=== PATIENT | male | born 1945 | race Caucasian/White ===

== ENCOUNTER 2024-02-10 08:17 | Emergency (ER) | payer MEDICARE, OTHER, SELFPAY ==
[2024-02-10 08:19] VITALS: BP 145/97
[2024-02-10 08:20] VITALS: BP 145/97
[2024-02-10 08:26] VITALS: BP 145/97
--- NOTE | 2024-02-10 08:39 | ED.GENMED ---
History of Present Illness
General
Chief Complaint: Fall
Source: patient
Exam Limitations: none
Time Seen by Provider: 02/10/24 08:18
History of Present Illness
History of Present Illness:
78 y/o Mh/o htn, hld, gerd
here after fall this am sometimes probably around 4 am
has not been feeling wellf or 3 days, chills, cough, fatigue, a little diarrhea
was coughing in the night so he left his bedroom to sleep in the living room. he had a pile of blankets on. he got up to use the bathroom and claims he was tangled up in the blankets and that cauesd him to fall
he denies head strike, loc but he was too weak to get up. he waited on the ground until his go up for the day and found him on the ground. pt says he urinated on himself becuase he couldn't get himself untangled to get up and had to urinate.
no h/o seizure
he was placed in c collar for precaution but he has no neck pain, numbness/tingling/weakness in his arms or legs
no back pain
no chest pain
denies sob, pain with deep breathing, nausea, severe headache
has not taken anything for pain or headache today.
Past History
Past History
ED Past Medical History: GERD, HTN, Hypercholesterolemia and Other (hiatal hernia)
Social History
Tobacco: Non-smoker
Alcohol: None
Drug: None
Personal:
Living: with family
Review of Systems
Review of Systems
Allergies reviewed?: Yes
All Other Systems: Not applicable
Phy Exam
Physical Exam
Physical Exam:
GENERAL: Alert , nontoxic
head: ncat
EYE: pupils equal and reactive
NECK: Supple
was originally in c collar; removed and no midline tendenress, full painless ROM; collar removed;
ENT: o/p clr, mmm.
CARDIAC: Regular rate and rhythm .
LUNGS: rhonchi RUL; frequent dry cough; no wheezing, no rales; no resp distress;
ABDOMEN: Soft, without focal tenderness, no r/g, no cvat, normal bowel sounds
NEUROLOGICAL: Alert and oriented, no focal neuro deficits, cn intact, full rom, strength intact
SKIN: Warm and dry, skin intact.
MUSCULOSKELETAL: No edema, well perfused. neg nupur's sign
PSYCH: Normal and appropriate interaction.
Sepsis
Sepsis Screening
Sepsis Assessment: Sepsis Ruled Out
Sepsis Screen
Sepsis Screen: Sepsis Ruled Out
Date: 02/10/24
Time: 15:48
Course
Orders/Labs/Results
Orders:
Orders
02/10/24
Electrocardiogram (*1) Stat
Reason for Study: Chest Pain
Comment: DONE
02/10/24 08:31
0.9% Sodium Chloride 1000 ml [Nss] 1,000 ml IV BOLUS
Acetaminophen [Tylenol] 1,000 mg PO NOW STA
02/10/24 08:32
CT Head W/o Iv Contrast Urgent
Comment:
Reason For Exam: fall weakneess
CR Chest - 2 Views Urgent
Comment:
Reason For Exam: cough, fever, fatigue
02/10/24 08:40
COVID-19 Antigen Urgent
Source: Nasal Swab
CPK [Creatine Phosphokinase] Urgent
Complete Blood Count/With Diff Urgent
Comprehensive Metabolic Panel Urgent
Lactic Acid Q4H
Comment: CANCEL 2nd LACTIC ACID IF 1st LACTIC ACID IS LESS THAN 2
Influenza A+B Rapid Molecular Urgent
YEN Source: Nasal Swab
Specimen Description:
02/10/24 10:28
Guaifenesin/Dextromethorphan [Robitussin Dm] 5 ml PO NOW STA
Abnormal Lab Results
10/07/24
08:40
MPV 11.4 H fL
(7.4-10.4)
Abs Immat Gran (auto) 0.1 H 10^3/uL
(0-0.05)
Absolute Lymphs (auto) 0.8 L 10^3/uL
(1.2-3.4)
Absolute Monos (auto) 0.9 H 10^3/uL
(0.1-0.6)
Immature Gran % 0.6 H %
(0-0.5)
Neutrophils % 77.3 H %
(42.2-75.2)
Lymphocytes % 9.5 L %
(20.5-51.1)
Monocytes % 11.4 H %
(1.7-9.3)
Glucose 106 H mg/dl
(70-99)
Albumin 2.5 L g/dl
(3.5-5.0)
SARS-CoV-2 Antigen Positive A
(Negative)
02/10/24 08:40
02/10/24 08:40
Vital Signs
Initial and Last Documented VS:
Initial Vital Signs
Pulse Resp BP Pulse Ox
107 14 145/97 97
02/10/24 08:19 02/10/24 08:19 02/10/24 08:19 02/10/24 08:19
Last Documented Vital Signs
Temp Pulse Resp BP Pulse Ox
100 F 98 12 137/93 96
02/10/24 09:35 02/10/24 11:45 02/10/24 11:45 02/10/24 11:39 02/10/24 12:00
MDM/Problems Addressed
Differential Diagnosis Includes:
covid 19, pneumaoni, flu, syncope, head injury, rhabdo, dehydration
MDM/Problems Addressed:
78y/o M with htn hld
3 days uri sxs
this morning was getting up to go to the bathroom and fell because he got caught up in his blankets and was too weak to get up
he denies hitting head or LOC
no thinners
no nec kpain though placed in collar
found him a few hour rucker
seemed a little weak but no ams
here is febrile not hypoxic
coughing but not wheezing
no resp distress
no signs of head/neck injury
neck cleared clinically
neuro intact
cxr indep reviewed, neg
fever improved with tylenol and fluids
head ct neg
labs are unremarkable
covid pos
ambulated without desat
d/c home
discussed paxlovid, > 72 hour syptoms and pt declined
*Critical Care Note
Total Time (30-74mins, 75-104mins- exclusive of procedures): Not Applicable
ED Attending Note
-
Portions of this chart may have been created with voice recognition software.� Occasional wrong word or��sound alike� substitutions may have occurred due to the inherent limitations of voice recognition software.
Discharge Plan
Departure
Patient Disposition: Home (Routine Discharge)
Date of Disposition: 02/10/24
Time of Disposition: 12:07
Patient with high blood pressure during this ER visit?: No
Covid-19: Confirmed COVID-19
Discharge Problem:
COVID-19
Instructions: COVID-19 ED, COVID-19 in adults - Discharge instructions
Prescriptions:
No Action
omeprazole 20 mg Capsule,Delayed Release(Dr/Ec)
20 mg PO DAILY
lisinopril 5 mg Tablet
5 mg PO DAILY
loratadine [Allerclear] 10 mg Tablet
10 mg PO DAILY PRN (Reason: allergy)
Joint Health 40-10-5-3.3 mg Tablet
1 tab PO . DIRECTED
Florastor Probiotic
2 tab PO . DIRECTED
Probiotic
1 tab PO . DIRECTED
lutein-zeaxanthin
1 tab PO . DIRECTED
Referrals:
UNKNOWN - PT DOES,NOT KNOW [Family Provider] -
Activity Restrictions/Additional Instructions:
You tested positive for COVID-19. Stay hydrated. Take Tylenol
Every 6 hours as needed for fever and pain. Use [id number] cough suppressants if you need to for your cough. Stay home for total of 5 days and until you are fever free for 24 hours. Return for worsening weakness, lethargy, confusion,
shortness of breath, dehydration or vomiting or any concerns
Interventions
Interventions:
*Risk Screen - Suicide Last Done: 02/10/24 08:18
*General Assessment Last Done: 02/10/24 08:29
*Neglect/Abuse Screening Last Done: 02/10/24 08:18
ED- Fall Risk Assessment Last Done: 02/10/24 08:27
*ED COVID-19 Vaccine History Last Done: 02/10/24 08:19
*Nursing Disposition Last Done: 02/10/24 12:29
ED-Musculoskeletal Assessment Last Done: 02/10/24 08:46
ED- Neurological Assessment Last Done: 02/10/24 08:30
Discharge Date and Time
Discharge Date/Time: 02/10/24 12:30
Print Language: [id number]
[2024-02-10] MEDS: TYLENOL 1000 MG PO (08:41)
[2024-02-10] MEDS: NSS 1000 IV (08:41)
[2024-02-10 08:43] VITALS: BMI 24.1
[2024-02-10 09:00] VITALS: BP 135/97
[2024-02-10 09:02] LABS: % Basophils 0.7 % (0-2); % Eosinophils 0.5 % (0-6); % Immature Granulocytes 0.6 % (0-0.5); % Lymphocytes 9.5 % (20.5-51.1); % Monocytes 11.4 % (1.7-9.3); % Neutrophils 77.3 % (42.2-75.2); Absolute Basophils 0.1 10^3/uL (0-0.2); Absolute Immature Granulocytes 0.1 10^3/uL (0-0.05); Absolute Lymphocytes 0.8 10^3/uL (1.2-3.4); Absolute Monocytes 0.9 10^3/uL (0.1-0.6); Absolute Neutrophils 6.2 10^3/uL (1.4-6.5); Hematocrit 42.4 % (39.0-52.0); Hemoglobin 14.6 g/dL (13.0-18.0); Mean Corp Hgb Conc. 34.4 g/dL (33.0-37.0); Mean Corpuscular Hgb 30.5 pg (27.0-31.0); Mean Corpuscular Volume 88.7 fL (80.0-94.0); Mean Platelet Volume 11.4 fL (7.4-10.4); Nucleated Red Blood Cells % 0 % (-); Platelet Count 196 10^3/uL (130-400); Red Blood Cell Count 4.78 10^6/uL (4.70-6.10); Red Cell Dist. Width 14.2 % (11.5-14.5)
[2024-02-10 09:03] LABS: ALT (SGPT) 14 U/L (0-50); AST (SGOT) 26 U/L (17-59); Albumin 2.5 g/dl (3.5-5.0); Alkaline Phosphatase 49 U/L (38-126); Blood Urea Nitrogen 20 mg/dl (9-20); Calcium 8.6 mg/dl (8.4-10.2); Carbon Dioxide 26 mmol/L (22-30); Chloride 102 mmol/L (98-107); Creatine Phosphokinase 125 U/L (55-170); Estimated Creatinine Clearance 59 ml/min; Glucose 106 mg/dl (70-99); Potassium 4.4 mmol/L (3.5-5.1); Sodium 138 mmol/L (135-145); Total Protein 6.3 g/dl (6.3-8.2); eGFR > 60.00
[2024-02-10 09:04] LABS: Lactic Acid 1.1 mmol/L (0.7-2.0)
[2024-02-10 09:19] LABS: COVID-19 Antigen Positive (Negative)
[2024-02-10 10:00] VITALS: BP 125/81
[2024-02-10] MEDS: ROBITUSSIN DM 5 ML PO (10:37)
[2024-02-10 11:39] VITALS: BP 137/93
== END 2024-02-10 12:30 | disposition home or self-care (01) ==
LOC: EMR 08:17
PROVIDERS: Physician Assistant; EMERGENCY PHYSICIAN Emergency Medicine
DX: U07.1 COVID-19 (principal); I10 Essential (primary) hypertension; E78.00 Pure hypercholesterolemia, unspecified; K21.9 Gastro-esophageal reflux disease without esophagitis
CPT/HCPCS: 99284; 70450; 71046; 80053; 82550; 83605; 85025; 87502; 87811; 93005